=== PATIENT | female | born 1960 | race Caucasian/White ===

== ENCOUNTER 2017-09-26 10:04 | Day surgery (SDC) | payer OTHER, SELFPAY ==
[2017-09-26] VITALS (7 sets, daily range): BP systolic 110–143; BP diastolic 71–91; PULSE 53–69; RESP 16; TEMP 35.9–36.9; O2SAT 98–100; BMI 30.8
--- NOTE | 2017-09-26 | MASS_PTH ---
PATIENT: SHANTI GANDHI LOC: [facility] [place] U[place][id number] AGE/SX: 57/F ROOM: RE09/26/[address]: Dr. Cruz Bain MD : 1960 BED: DIS: 09/26/2017 SPEC #: [id number] RECD: 09/26/17 08:49 STATUS: MAYNOR GALVAN #: [id number] AMELIA: 09/26/17 00:[address]: Cruz Bain DEPT: SURGICAL PATHOLOGY RECD BY: Miko Echavarria ENTERED: 09/29/17 08:49 SP TYPE: Mass OTHR DR: No Primary Care Phys Tissues: Back, NOS Procedures: Surgery Specimen Level III HEADER OPERATION: Excision soft tissue mass right upper back by scapula PRE-OP DIAGNOSIS: Painful soft tissue mass right upper back by scapula TISSUE SUBMITTED: Soft tissue mass right upper back by scapula MICROSCOPIC DIAGNOSIS Soft tissue mass right upper back by scapula, excision: Mature adipose tissue consistent with lipoma. SJ:lambert 10/01/17 MICROSCOPIC DESCRIPTION Slides are reviewed. GROSS DESCRIPTION Received in fixative is one container labeled with the patient's name and designated soft tissue mass right upper back. The specimen consists of a piece of malhotra-yellow adipose tissue measuring 6 x 4.5 x 2.5 cm. The external surface is inked. Sections reveal yellow adipose cut surfaces without areas of hemorrhage, necrosis or cystic degeneration. Spa Assistant Manager sections are submitted in three cassettes. Sections are submitted after infusion cycle. / ROBERT:lambert 09/29/17 TC:1 CPT: 28362
--- NOTE | 2017-09-26 00:23 | HP.PCM_ITS ---
History and Physical Date of Admission: 09/26/17 HISTORY OF PRESENT ILLNESS 57 year old woman presents with a painful soft tissue mass right upper back by scapula that has been increasing in size over the last several months. She denies any fever. She denies any trauma. She states there is some discomfort when it is bumped and when she is sitting in a chair and driving. She presents at this time for further evaluation and treatment. PAST MEDICAL HISTORY Hypertension. PAST SURGICAL HISTORY None. MEDICATIONS None. ALLERGIES acetaminophen [From Tylenol-Codeine #3]. codeine [From Tylenol-Codeine #3]. FAMILY HISTORY Mother - Arthritis. Diabetes. Heart disease. Hypertension. Father - Heart disease. SOCIAL HISTORY Smoking Status: Former smoker alcohol intake: current substance use type: does not use REVIEW OF SYSTEMS General - Denies fever, fatigue, and weight loss. Eyes - Denies cataracts and glaucoma. ENT - Denies nasal congestion and sore throat. Endocrine - Denies excessive thirst and urination. Skin - Denies skin cancer. Has painful soft tissue mass right upper back by scapula. Musculoskeletal - Denies joint pain, joint stiffness, weakness of muscles and joints, back pain, and arthritis. Neuro - Denies headaches. Cardiovascular - Denies chest pain, fatigue, and shortness of breath with exertion. Psych - Denies anxiety and depression. Respiratory - Denies chronic cough and shortness of breath. Gastrointestinal - Denies nausea, vomiting, diarrhea, and constipation. Hematologic - Denies abnormal bruising and bleeding. Genitourinary - Denies hematuria and urinary frequency. PHYSICAL EXAM General - Alert and Oriented HEENT - PERRL. EOMI. Throat is clear. No suspicious lesions noted. Neck - Supple and nontender. No cervical adenopathy. No suspicious lesions noted. Lungs - Clear to auscultation. Heart - Regular rate and rhythm. Abdomen - Soft and nondistended. Extremities - FROM. No axillary adenopathy. Radial pulses are palpable. No suspicious lesions noted. Neuro - CN II-XII grossly intact. Back - On the right upper back by scapula is a soft tissue mass. It measures 6 cm. It is mobile. It is not adherent to the underlying muscle. It is not adherent to the scapula. The overlying skin is not adherent to the soft tissue mass. No evidence of infection. No drainage. No ulceration. Slight discomfort when palpated. No sensory deficits. Psych - Normal mood and affect. ASSESSMENT 6 cm painful soft tissue mass right upper back by scapula. PLAN The soft tissue mass is clinically consistent with a lipoma. Because of its location, there is discomfort when it is bumped and also when she leans back in a chair or when she is driving. Recommend excision of this soft tissue mass and send it to Pathology for analysis to rule out carcinoma. Doubt the mass is submuscular. Depending on the extent of the dissection, a drain may be necessary postoperatively. Surgery will be done under local anesthesia and IV sedation on an outpatient basis. Patient was informed of the risks and complications of the procedure including alternatives to surgery. These were discussed with the patient personally. Patient voices understanding and wishes to proceed. Some of the risks and complications were included in a form from the [employer] [place] [employer].
[2017-09-26] MEDS: Cefazolin 2 GM in 0.9% Normal Saline 100 ML IV (12:12)
[2017-09-26] MEDS: Mupirocin Ointment 22gm Tube 1 APPLIC (13:08)
--- NOTE | 2017-09-26 13:12 | PCM.IMDPSTOP ---
Immediate Post-Op Note Date of Procedure: 09/26/17 Primary Surgeon/Physician: Cruz Bain specialist physicians: None Pre-Operative Diagnosis: 6 cm painful soft tissue mass right upper back by scapula. Post-Operative Diagnosis: 6 cm painful soft tissue mass right upper back by scapula with adherence to underlying muscles (latissimus dorsi, rhomboid, and trapezius). Surgery/Procedure Performed:: Excision 6 cm painful soft tissue mass right upper back by scapula with adherence to underlying muscles (latissimus dorsi, rhomboid, and trapezius). Description of Surgical Findings:: 57 year old woman presents with a painful soft tissue mass right upper back by scapula that has been increasing in size over the last several months. She denies any fever. She denies any trauma. She states there is some discomfort when it is bumped and when she is sitting in a chair and driving. Today the patient underwent excision 6 cm painful soft tissue mass right upper back by scapula with adherence to underlying muscles (latissimus dorsi, rhomboid, and trapezius). I used Lg absorbable hemostat. Reference Number - [id number]. Lot Number - [id number]. Expiration - May 21, 2022. Estimated Blood Loss: 25 ml. Specimen's removed: Painful soft tissue mass right upper back by scapula to Pathology. Drains: Remy. Type of Anesthesia:: Local MAC - Xylocaine with epinephrine. - Admit VTE Documentation VTE Present on Admission: No VTE Mechan Device Prophylaxis: SCD's VTE Pharm Prophylaxis ordered?: No
--- NOTE | 2017-09-26 13:15 | OP.PN_ITS ---
Immediate Post-Op Note Date of Procedure: 09/26/17 Primary Surgeon/Physician: Cruz Bain handle attacher: None Pre-Operative Diagnosis: 6 cm painful soft tissue mass right upper back by scapula. Post-Operative Diagnosis: 6 cm painful soft tissue mass right upper back by scapula with adherence to underlying muscles (latissimus dorsi, rhomboid, and trapezius). Surgery/Procedure Performed:: Excision 6 cm painful soft tissue mass right upper back by scapula with adherence to underlying muscles (latissimus dorsi, rhomboid, and trapezius). Description of Surgical Findings:: 57 year old woman presents with a painful soft tissue mass right upper back by scapula that has been increasing in size over the last several months. She denies any fever. She denies any trauma. She states there is some discomfort when it is bumped and when she is sitting in a chair and driving. Today the patient underwent excision 6 cm painful soft tissue mass right upper back by scapula with adherence to underlying muscles (latissimus dorsi, rhomboid , and trapezius). I used Lg absorbable hemostat. Reference Number - [id number]. Lot Number - [id number]. Expiration - May 21, 2022. Estimated Blood Loss: 25 ml. Specimen's removed: Painful soft tissue mass right upper back by scapula to Pathology. Drains: Remy. Type of Anesthesia:: Local MAC - Xylocaine with epinephrine. - Admit VTE Documentation VTE Present on Admission: No VTE Mechan Device Prophylaxis: SCD's VTE Pharm Prophylaxis ordered?: No
--- NOTE | 2017-09-26 13:18 | PCM.DC ---
You will use the following diet at home:: No restrictions Discharge Activity: May not drive while taking narcotic pain medications., May Not Shower - until the drain is removed., - - no heavy lifting. keep head elevated. May shower in (days): 7 - may shower after the drain is removed in the office. May resume sexual activity in: No Restrictions Weight Bearing Status: Weight bearing as tolerated Lifting Restrictions: 20 lbs. Keep extremity elevated above heart level: - - elevate head. Call your doctor if your incision/area has: Continuous Slow Oozing, Sudden Increased Bleeding, Increased Pain/ Swelling, Increased Redness, Foul Smelling Discharge, Swelling at the incision site Call your doctor if you observe: Fever of 101 or Higher, Coldness, Increased Pain, Shortness of breath, Chest pain, Calf discomfort, Uncontrolled pain Suture Line Care: - - after dressing removed in two days apply antibiotic ointment to suture line daily. Change Dressing in (Days):: 2 - daily gauze dressing. Cleanse incision/area with: - - may get incision wet in the shower after the drain is removed. Allergies/Adverse Reactions: Allergies acetaminophen [From Tylenol-Codeine #3] Adverse Reaction (Intermediate, Verified 09/19/17 14:15) Nausea codeine [From Tylenol-Codeine #3] Adverse Reaction (Intermediate, Verified 09/19/17 14:15) Nausea Medications to take at Discharge Cefadroxil [Duricef] 500 mg PO BID #20 cap 09/26/17 Diazepam [Valium] 5 mg PO 4X/DAY PRN PRN #20 tab 09/26/17 Oxycodone HCl/Acetaminophen [Percocet 5/325] 1 - 2 tab PO 4X/DAY PRN PRN 5 Days #40 tab 09/26/17 The following prescriptions were given: Diazepam [Valium] 5 mg PO 4X/DAY PRN PRN #20 tab PRN Reason: Spasms Oxycodone HCl/Acetaminophen [Percocet 5/325] 1 - 2 tab PO 4X/DAY PRN PRN 5 Days #40 tab PRN Reason: Pain Cefadroxil [Duricef] 500 mg PO BID #20 cap Primary Care Physician: Care Physician,No Primary [Primary Care Provider] - Test Results: Test results from this visit will be discussed in further detail at your follow-up appointment, if applicable. Please Follow Up With: Cruz Bain MD When: one week. call [phone] for appt. Proposed Discharge Date: 09/26/17
--- NOTE | 2017-09-26 13:23 | DCINST_ITS ---
You will use the following diet at home:: No restrictions Discharge Activity: May not drive while taking narcotic pain medications., May Not Shower - until the drain is removed., - - no heavy lifting. keep head elevated. May shower in (days): 7 - may shower after the drain is removed in the office. May resume sexual activity in: No Restrictions Weight Bearing Status: Weight bearing as tolerated Lifting Restrictions: 20 lbs. Keep extremity elevated above heart level: - - elevate head. Call your doctor if your incision/area has: Continuous Slow Oozing, Sudden Increased Bleeding, Increased Pain/ Swelling, Increased Redness, Foul Smelling Discharge, Swelling at the incision site Call your doctor if you observe: Fever of 101 or Higher, Coldness, Increased Pain, Shortness of breath, Chest pain, Calf discomfort, Uncontrolled pain Suture Line Care: - - after dressing removed in two days apply antibiotic ointment to suture line daily. Change Dressing in (Days):: 2 - daily gauze dressing. Cleanse incision/area with: - - may get incision wet in the shower after the drain is removed. Allergies/Adverse Reactions: Allergies acetaminophen [From Tylenol-Codeine #3] Adverse Reaction (Intermediate, Verified 09/19/17 14:15) Nausea codeine [From Tylenol-Codeine #3] Adverse Reaction (Intermediate, Verified 09/19 14:15) Nausea Medications to take at Discharge Cefadroxil [Duricef] 500 mg PO BID #20 cap 09/26/17 Diazepam [Valium] 5 mg PO 4X/DAY PRN PRN #20 tab 09/26/17 Oxycodone HCl/Acetaminophen [Percocet 5/325] 1 - 2 tab PO 4X/DAY PRN PRN 5 Days #40 tab 09/26/17 The following prescriptions were given: Diazepam [Valium] 5 mg PO 4X/DAY PRN PRN #20 tab PRN Reason: Spasms Oxycodone HCl/Acetaminophen [Percocet 5/325] 1 - 2 tab PO 4X/DAY PRN PRN 5 Days #40 tab PRN Reason: Pain Cefadroxil [Duricef] 500 mg PO BID #20 cap Primary Care Physician: Care Physician,No Primary [Primary Care Provider] - Test Results: Test results from this visit will be discussed in further detail at your follow- up appointment, if applicable. Please Follow Up With: Cruz Bain MD When: one week. call [phone] for appt. Proposed Discharge Date: 09/26/17
--- NOTE | 2017-09-26 18:05 | PCM.OPRPT ---
Report of Operation Date of Procedure: 09/26/17 Pre-Operative Diagnosis: 6 cm painful soft tissue mass right upper back by scapula. Post-Operative Diagnosis: 6 cm painful soft tissue mass right upper back by scapula with adherence to underlying muscles (latissimus dorsi, rhomboid, and trapezius). Surgery/Procedure Performed:: Excision 6 cm painful soft tissue mass right upper back by scapula with adherence to underlying muscles (latissimus dorsi, rhomboid, and trapezius). Description of Surgical Findings:: 57 year old woman presents with a painful soft tissue mass right upper back by scapula that has been increasing in size over the last several months. She denies any fever. She denies any trauma. She states there is some discomfort when it is bumped and when she is sitting in a chair and driving. Patient was informed of the risks and complications of the procedure including alternatives to surgery. These were discussed with the patient personally. Patient voices understanding and wishes to proceed. Some of the risks and complications were included in a form from the [place] [employer]. I used Lg absorbable hemostat. Reference Number - [id number]. Lot Number - [id number]. Expiration - May 21, 2022. chemistry manager: None Type of Anesthesia:: Local MAC - Xylocaine with epinephrine. Specimen's removed: Painful soft tissue mass right upper back by scapula to Pathology. Drains: Remy. Estimated Blood Loss (mL): 25 ml. Description of Procedure: Patient was taken to OR in supine position and was given IV sedation. She was then placed in an oblique position for better exposure of her right upper back. Her right upper back was prepped and draped in the usual fashion. SCD's were placed for DVT prophylaxis. Perioperative antibiotics were given intravenously. Using xylocaine with epinephrine, The soft tissue mass right upper back by scapula was infiltrated. After waiting 5 minutes for the anesthetic to take effect, an oblique incision was made over the mass and dissection was carried down into the subcutaneous tissue. A fair amount of scar tissue was present around this soft tissue mass which was clinically consistent with a lipoma. There was adherence of the soft tissue mass down to the underlying muscles which helps to explain her painful symptomatology. The muscles involved were the latissimus dorsi, rhomboid, and trapezius. The mass was multilobular and a little larger after removal than could be ascertained preoperatively. The soft tissue mass was then sent to Pathology for analysis to rule out carcinoma. The size of the soft tissue mass was 6 cm. Hemostasis was obtained with electrocautery. The wound was irrigated with saline. The cavity after the excision was large, and I felt a drain was necessary to minimize seroma formation. Using a size 15 Remy drain, I made a separate stab incision inferiorly and secured the drain to the skin with 3-0 Nylon suture. Also I sprayed Lg absorbable hemostat into the wound to minimize seroma as well. I then closed the wound in multiple layers with 3-0 Vicryl figure of eight interrupted sutures for the underlying fascia. The deep dermis and subcutaneous tissue was approximated with 4-0 Monocryl interrupted sutures. The skin was approximated with 4-0 Prolene interrupted sutures. Antibiotic ointment was applied to the incision followed by a compression gauze dressing. Patient tolerated the procedure well and was sent to PACU in satisfactory condition. She will be sent home on antibiotics and pain medication. She will followup in the office in a week for a wound check and for discussion of the pathology report and for removal of the drain. The sutures will be removed in 7-10 days. Grafts/Implants Used: None. - Complications None. - Admit VTE Documentation VTE Present on Admission: No VTE Mechan Device Prophylaxis: SCD's VTE Pharm Prophylaxis ordered?: No Code Visit Surgery Charges CPT - 59279 ICD-10 - R22.2, D17.1
--- NOTE | 2017-09-27 15:05 | OP.PCM_ITS ---
Report of Operation Date of Procedure: 09/26/17 Pre-Operative Diagnosis: 6 cm painful soft tissue mass right upper back by scapula. Post-Operative Diagnosis: 6 cm painful soft tissue mass right upper back by scapula with adherence to underlying muscles (latissimus dorsi, rhomboid, and trapezius). Surgery/Procedure Performed:: Excision 6 cm painful soft tissue mass right upper back by scapula with adherence to underlying muscles (latissimus dorsi, rhomboid, and trapezius). Description of Surgical Findings:: 57 year old woman presents with a painful soft tissue mass right upper back by scapula that has been increasing in size over the last several months. She denies any fever. She denies any trauma. She states there is some discomfort when it is bumped and when she is sitting in a chair and driving. Patient was informed of the risks and complications of the procedure including alternatives to surgery. These were discussed with the patient personally. Patient voices understanding and wishes to proceed. Some of the risks and complications were included in a form from the [place] [employer]. I used Lg absorbable hemostat. Reference Number - [id number]. Lot Number - [id number]. Expiration - May 21, 2022. car rider: None Type of Anesthesia:: Local MAC - Xylocaine with epinephrine. Specimen's removed: Painful soft tissue mass right upper back by scapula to Pathology. Drains: Remy. Estimated Blood Loss (mL): 25 ml. Description of Procedure: Patient was taken to OR in supine position and was given IV sedation. She was then placed in an oblique position for better exposure of her right upper back. Her right upper back was prepped and draped in the usual fashion. SCD's were placed for DVT prophylaxis. Perioperative antibiotics were given intravenously. Using xylocaine with epinephrine, The soft tissue mass right upper back by scapula was infiltrated. After waiting 5 minutes for the anesthetic to take effect, an oblique incision was made over the mass and dissection was carried down into the subcutaneous tissue. A fair amount of scar tissue was present around this soft tissue mass which was clinically consistent with a lipoma. There was adherence of the soft tissue mass down to the underlying muscles which helps to explain her painful symptomatology. The muscles involved were the latissimus dorsi, rhomboid, and trapezius. The mass was multilobular and a little larger after removal than could be ascertained preoperatively. The soft tissue mass was then sent to Pathology for analysis to rule out carcinoma. The size of the soft tissue mass was 6 cm. Hemostasis was obtained with electrocautery. The wound was irrigated with saline. The cavity after the excision was large, and I felt a drain was necessary to minimize seroma formation. Using a size 15 Remy drain, I made a separate stab incision inferiorly and secured the drain to the skin with 3-0 Nylon suture. Also I sprayed Lg absorbable hemostat into the wound to minimize seroma as well. I then closed the wound in multiple layers with 3-0 Vicryl figure of eight interrupted sutures for the underlying fascia. The deep dermis and subcutaneous tissue was approximated with 4-0 Monocryl interrupted sutures. The skin was approximated with 4-0 Prolene interrupted sutures. Antibiotic ointment was applied to the incision followed by a compression gauze dressing. Patient tolerated the procedure well and was sent to PACU in satisfactory condition. She will be sent home on antibiotics and pain medication. She will followup in the office in a week for a wound check and for discussion of the pathology report and for removal of the drain. The sutures will be removed in 7 -10 days. Grafts/Implants Used: None. - Complications None. - Admit VTE Documentation VTE Present on Admission: No VTE Mechan Device Prophylaxis: SCD's VTE Pharm Prophylaxis ordered?: No Code Visit Surgery Charges CPT - 28143 ICD-10 - R22.2, D17.1
== END 2017-09-26 14:24 | disposition home or self-care (01) ==
LOC: SDC 10:04 → AC 10:06
PROVIDERS: Visit Provider Surgery
PROC: (CPT 21933; principal; 2017-09-26 11:30)
DX: R22.2 Localized swelling, mass and lump, trunk (principal); I10 Essential (primary) hypertension; Z78.0 Asymptomatic menopausal state; Z87.891 Personal history of nicotine dependence
CPT/HCPCS: 00300; 21933; 88304; 88305; J7120

== ENCOUNTER → 2019-08-05 | Outpatient (CLI) | payer OTHER, SELFPAY ==
[2017-09-26 10:28] VITALS: BMI 30.8
== END | disposition home or self-care (01) ==
PROVIDERS: Referring Provider Nurse Practitioner Adult Health; Visit Provider Nurse Practitioner Adult Health
DX: R82.998 Other abnormal findings in urine (principal)
CPT/HCPCS: 87086; 87088

== ENCOUNTER 2019-08-06 08:41 | Day surgery (SDC) | payer OTHER, SELFPAY ==
[2017-09-26 10:28] VITALS: BMI 30.8
[2019-08-06] VITALS (7 sets, daily range): BP systolic 150–167; BP diastolic 81–93; PULSE 60–74; RESP 16; TEMP 36.3–37.3; O2SAT 96–98; BMI 35.0
--- NOTE | 2019-08-06 09:08 | RAD_ITS ---
STUDY: X-RAY - ABDOMEN/PELVIS REASON FOR EXAM: Female, 59 years old. PRE OP KIDNEY STONE TECHNIQUE: Single AP view of the abdomen / pelvis. COMPARISON: None. FINDINGS: Normal visualized lung bases. There is an abundance of fecal material throughout the colon. There is a 5.6 mm calculus in the region of the left renal pelvis. Normal soft tissue structures. Normal visualized osseous structures. RAD/Abdomen Single View IMPRESSION: 5.6 mm calculus in the region of the left renal pelvis. Large amount of fecal material is seen in the colon. Electronically Signed: Jorge Rowe, at 10:19 EDT , Service support ,
[2019-08-06] MEDS: Lactated Ringers 1,000 ML 100 ML IV ×2 (10:26→12:28)
[2019-08-06] MEDS: Cefazolin 2 GM in 0.9% Normal Saline 100 ML IV (10:38)
--- NOTE | 2019-08-06 10:42 | PCM.HP.STD ---
History of Present Illness Date of Admission: 08/06/19 Chief Complaint: Left proximal ureteral calculi The patient is a 59 year old female who is yesterday in the office with pain and blood in the urine KUB was done and she has a stone in the proximal left ureter CAT scan confirmed a stone up in the kidney stones moving given her pain or discomfort plan for treatment today with shockwave lithotripsy possible placement of stent if necessary. Past Medical History Past Medical History (Chronic Problems): Chronic Problems (Last Reviewed 08/21/17 @ 10:41 by Nya Omalley) Lipoma of back (Chronic) 6 cm painful lipoma right upper back by scapula with adherence to underlying muscles (latissimus dorsi, rhomboid, and trapezius) Hypertension (Chronic) Localized swelling, mass and lump, trunk (Chronic) 6 cm painful soft tissue mass right upper back by scapula Allergies acetaminophen [From Tylenol-Codeine #3] Adverse Reaction (Intermediate, Verified 08/06/19 09:11) Nausea codeine [From Tylenol-Codeine #3] Adverse Reaction (Intermediate, Verified 08/06/19 09:11) Nausea Home Medications: Ambulatory Orders Medication Instructions Recorded Ketorolac [Toradol] 10 mg PO Q6H PRN 08/05/19 Ondansetron HCl [Zofran] 4 mg PO PRN PRN 08/05/19 Surgical History: no surgical history Smoking Status: Former smoker Tobacco Use: Non-smoker Review of Systems Constitutional: Denies: Chills, Fever, Weight Change HEENT: Denies: Head Aches, Sinus Congestion, Sinus Drainage Cardiovascular: Denies: Chest Pain, Palpitations Respiratory: Denies: Cough, Shortness of breath at rest, Sputum production Gastrointestinal: Denies: Abdominal Pain, Nausea, Vomiting Genitourinary: Denies: Dysuria Musculoskeletal: Denies: Joint Pain, Joint Tenderness Skin: Denies: Rash, Wounds Neurological: Denies: Numbness, Tingling, Focal weakness Psychiatric: Denies: Anxiety, Depression, Homicidal Ideations, Suicidal Ideations Hematologic/ Lymphatic: Denies: Easy Bruising, Easy Bleeding VTE Information - Inpt Only VTE Present on Admission: No VTE Mechan Device Prophylaxis: SCD's - Physical Exam Vitals/I&O's: Vital Signs Temp Pulse Resp BP Pulse Ox 99.2 F H 73 16 150/93 H 96 08/06/19 09:17 08/06/19 09:17 08/06/19 09:17 08/06/19 09:17 08/06/19 09:17 Oxygen Delivery Method Room Air Weight: 87 kg Body Mass Index (BMI) 35.0 General: Alert, Oriented x3, Cooperative HEENT: Atraumatic, PERRLA, EOMI, Normocephalic Neck: Supple, No JVD, Negative Carotid Bruits Lungs: Clear to auscultation, Normal air movement Cardiovascular: Regular rate, No murmurs Abdomen: Bowel Sounds Present, Soft, Non Tender Extremities: No edema, Capillary Refill Less than 3 Seconds Skin: No rashes, No breakdown Musculoskeletal: No Tenderness to Palpation of Joints or Extremities Neurological: Cranial nerves II-XII grossly intact Psych/Mental Status: Normal Affect, Appropriate Microbiology Past 72 Hours 08/05/19 16:30 Mucosa - Nasopharyngeal Coronavirus COVID-19 PCR - Final Laboratory Results 08/05/19 16:30: COVID-19 (NISAHNT) Cancelled Current Medications Lactated Ringer's () 1,000 mls @ 100 mls/hr IV .Q10H YVES Last Admin: 08/06/19 10:26 Dose: 100 mls/hr Documented by: Assessment/Plan Plan to proceed with a left shockwave lithotripsy of stone possible stent placement if necessary. Talk to the patient regarding the procedure house done risk and benefits and expected outcomes. Essential Procedure Criteria Procedure Essential: Yes Criteria Note: On 06/08/2019 the [place] [facility] ([facility]) Public Order signed by [facility] Director Keya Aquino M.D., regarding the Management of Non-Essential Surgeries and Procedures for the purpose of preserving Personal Protective Equipment (PPE) and critical hospital capacity and resources within [place] went into effect as of 06/09/2019 at 5:00PM. According to the [facility] Public Order: This action will remain in full force and effect until the State of Emergency declared by the Governor no longer exists or the Director of the [facility] rescinds or modifies this Order.. This [facility] order stated all non-essential or elective surgeries and procedures that utilize PPE should be delayed unless there is undue risk to the current or future health of a patient. After reviewing the aforementioned [facility] Public Order and the patients clinical case, I have determined that the scheduled procedure meets the criteria to go forward. Risk to Patient if Procedure Delayed: Risk of rapidly worsening to severe symptoms if delayed
--- NOTE | 2019-08-06 10:44 | DCINST_ITS ---
Discharge Diet: No Restrictions, Light diet - advance as tolerated Discharge Activity: Return to Normal Activity, May Not Drive - for 2 days. Additional Activity Instructions:: Please be aware that pain medications may cause nausea. You should typically eat light foods as you take your pain medication. Pain medication may cause constipation, if this is a problem for you, please discuss with your doctor. Allergies/Adverse Reactions: Allergies acetaminophen [From Tylenol-Codeine #3] Adverse Reaction (Intermediate, Verified 08/06/19 09:11) Nausea codeine [From Tylenol-Codeine #3] Adverse Reaction (Intermediate, Verified 08/06/19 09:11) Nausea Medications to take at Discharge Ketorolac [Toradol] 10 mg PO Q6H PRN 08/05/19 Ondansetron HCl [Zofran] 4 mg PO PRN PRN 08/05/19 Primary Care Physician: Care Physician,No Primary [Primary Care Provider] - Test Results: Test results from this visit will be discussed in further detail at your follow- up appointment, if applicable. Please Follow Up With: Hunter Guallpa MD When: please call to make an appointment- NEXT WEEK WITH DILLAN
--- NOTE | 2019-08-06 11:34 | OP.PCM_ITS ---
Report of Operation Date of Procedure: 08/06/19 Pre-Operative Diagnosis: Left proximal ureteral calculi Post-Operative Diagnosis: Same Surgery/Procedure Performed:: Left extracorporeal shockwave lithotripsy Description of Surgical Findings:: 59-year-old female with a stone in the proximal ureter causing pain and obstruction and bleeding today working to proceed with shockwave lithotripsy of the stone we could see the stone clearly on KUB before surgery. Patient was taken back to the operating room at the smooth induction of anesthesia she was placed supine on the table in the lithotripter table we then proceeded with shockwave lithotripsy. The stone was placed in the F2 focal point of the shockwave machine a total of 3000 shockwaves were delivered to the stone at a rate of 90 shocks per minute, power from 5 to 7 kV, during the fra gmentation we monitor the stone with fluoroscopy to make sure that we kept the stone in the focal point of the shockwave treatment machine at the end of the treatment cycle the under fluoroscopy we could not see the stone fragments anymore it appeared to break up completely therefore at that point we decided not to place a stent. Patient anesthetic is being reversed plan to see her next week with a KUB for follow-up. Type of Anesthesia:: General Drains: none - Admit VTE Documentation VTE Present on Admission: No VTE Mechan Device Prophylaxis: SCD's
== END 2019-08-06 13:36 | disposition home or self-care (01) ==
LOC: SDC 08:43 → AC 08:44
PROVIDERS: Referring Provider Urology; Visit Provider Urology
PROC: (CPT 50590; principal; 2019-08-06 10:05)
DX: N20.1 Calculus of ureter (principal); I10 Essential (primary) hypertension; Z87.891 Personal history of nicotine dependence; Z11.59 Encounter for screening for other viral diseases
CPT/HCPCS: 00873; 50590; 74018; 87635; G2023; J7120; J2405; U0002

== ENCOUNTER 2019-08-12 11:40 | Inpatient (IN) | payer OTHER, SELFPAY ==
[2019-08-06 09:17] VITALS: BMI 35.0
--- NOTE | 2019-08-12 09:50 | RAD_ITS ---
STUDY: X-RAY - ABDOMEN/PELVIS REASON FOR EXAM: Female, 59 years old. Flank pain TECHNIQUE: AP supine and upright views of the abdomen and pelvis. COMPARISON: 08/06/2019 FINDINGS: Normal visualized lung bases. There is an abundance of fecal material throughout the colon. There is no demonstrated free abdominal air. The visualized liver, spleen and kidneys are grossly normal in size and morphology. No demonstrates calcifications overlying either renal shadow. There are however punctate calcifications in the left pelvis new since the previous study and likely represent fragments from recent lithotripsy. Normal soft tissue structures. Normal visualized osseous structures. RAD/Abdomen Single View IMPRESSION: New clustered punctate calcifications in the left pelvis likely sequela from recent lithotripsy. Large amount of retained stool throughout the colon Electronically Signed: Curry Bazan MD at 11:46 EDT , Service support ,
[2019-08-12 10:52] VITALS: BMI 34.0; BMI 34.1
[2019-08-12 11:04] VITALS: BP 153/86; PULSE 71; RESP 18; TEMP 36.9; O2SAT 95
--- NOTE | 2019-08-12 11:36 | PCM.HP.STD ---
History of Present Illness Date of Admission: 08/12/19 Chief Complaint: Eren straw stone fragments, and dehydration nausea vomiting The patient is a 59 year old female who had a 7 mm stone in the kidney she underwent shockwave lithotripsy last week stone broke up really well on x-ray and a fluoroscopy she was sent home then presented emergency room this past weekend with nausea vomiting not been able to pass stones, to pass one fragment but then presented the office today and she still having nausea vomiting looks pale week is not been able to keep liquids down has not been able passive fragments on KUB she has several fragments in the ureter will admit to the hospital for rehydration, plan to take her surgery for extraction of the stones and stent placement of the left side tomorrow morning. Past Medical History Past Medical History (Chronic Problems): Chronic Problems (Last Reviewed 08/21/17 @ 10:41 by Nya Omalley) Lipoma of back (Chronic) 6 cm painful lipoma right upper back by scapula with adherence to underlying muscles (latissimus dorsi, rhomboid, and trapezius) Hypertension (Chronic) Localized swelling, mass and lump, trunk (Chronic) 6 cm painful soft tissue mass right upper back by scapula Allergies acetaminophen [From Tylenol-Codeine #3] Adverse Reaction (Intermediate, Verified 08/12/19 11:22) Nausea, vomit codeine [From Tylenol-Codeine #3] Adverse Reaction (Intermediate, Verified 08/12/19 11:22) Nausea, vomit Home Medications: Ambulatory Orders Medication Instructions Recorded Ketorolac [Toradol] 10 mg PO Q6H PRN 08/05/19 Ondansetron HCl [Zofran] 4 mg PO Q6H PRN PRN 08/05/19 Oxycodone HCl/Acetaminophen 1 ea PO Q4H PRN 08/12/19 [Oxycodone-Acetaminophen 5-325] Surgical History: no surgical history Smoking Status: Former smoker Tobacco Use: Cigarettes Review of Systems Constitutional: Reports: Weakness. Denies: Chills, Fever, Weight Change HEENT: Denies: Head Aches, Sinus Congestion, Sinus Drainage Cardiovascular: Denies: Chest Pain, Palpitations Respiratory: Denies: Cough, Shortness of breath at rest, Sputum production Gastrointestinal: Reports: Abdominal Pain, Vomiting. Denies: Nausea Genitourinary: Denies: Dysuria Musculoskeletal: Denies: Joint Pain, Joint Tenderness Skin: Denies: Rash, Wounds Neurological: Denies: Numbness, Tingling, Focal weakness Psychiatric: Denies: Anxiety, Depression, Homicidal Ideations, Suicidal Ideations Hematologic/ Lymphatic: Denies: Easy Bruising, Easy Bleeding VTE Information - Inpt Only VTE Present on Admission: No VTE Mechan Device Prophylaxis: SCD's - Physical Exam Vitals/I&O's: Vital Signs Temp Pulse Resp BP Pulse Ox 98.4 F 71 18 153/86 H 95 08/12/19 11:04 08/12/19 11:04 08/12/19 11:04 08/12/19 11:04 08/12/19 11:04 Oxygen Delivery Method Room Air Weight: 85.865 kg Body Mass Index (BMI) 34.0 General: Alert, Oriented x3, Cooperative HEENT: Atraumatic, PERRLA, EOMI, Normocephalic Neck: Supple, No JVD, Negative Carotid Bruits Lungs: Clear to auscultation, Normal air movement Cardiovascular: Regular rate, No murmurs Abdomen: Bowel Sounds Present, Soft, Non Tender Extremities: No edema, Capillary Refill Less than 3 Seconds Skin: No rashes, No breakdown Musculoskeletal: No Tenderness to Palpation of Joints or Extremities Neurological: Cranial nerves II-XII grossly intact Psych/Mental Status: Normal Affect, Appropriate Current Medications Sodium Chloride () 10 - 40 ml IV UD PRN PRN Reason: SALINE FLUSH Assessment/Plan admit for nausea vomiting failure to pass stones after shockwave lithotripsy plan to take her tomorrow to remove the fragments are stuck in the distal ureter and place a stent in the left side.clear liquids for now and peel at midnight
[2019-08-12] MEDS: Lactated Ringers 1,000 ML 125 ML IV ×2 (12:05→22:26)
[2019-08-12] MEDS: 0.9% Saline Lock 10 ML Syringe IV ×4 (12:05→22:27)
[2019-08-12] MEDS: Morphine 2 MG/ML Syringe IV ×3 (12:08→18:56)
[2019-08-12] MEDS: Ondansetron 4 MG/2 ML Vial IV ×2 (12:14→22:27)
[2019-08-12 12:26] LABS: Anion Gap 5 (5-15); BUN 13 mg/dL (7-18); BUN/Creat Ratio 11.8 RATIO (10-20); Calcium,Total 9.3 mg/dL (8.5-10.1); Chloride 107 mmol/L (98-107); EST Glomerular Filtration Rate 54 mL/min (>60); Est Glom Filt Rate - Afr Amer 65 mL/min (>60); Estimated Creatinine Clearance 43.02 ml/min; Glucose 100 mg/dL (74-106); Potassium 3.9 mmol/L (3.5-5.1); Sodium Level 139 mmol/L (136-145)
[2019-08-12 12:27] LABS: Absolute Lymphocyte Count 1.36 X10^3/uL (0.83-4.51); Absolute Neutrophil Count 7.5 X10^3/uL (2.0-7.7); Basophil# 0.04 X10^3/uL; Basophil% 0.4 % (0-1); Eosinophil# 0.11 X10^3/uL; Eosinophils% 1.1 % (0-5); Lymphocyte # 1.36 X10^3/ul (4.0); Lymphocyte % 13.8 % (19-41); Mean Corp Hgb Conc 33.3 g/dL (32-36); Mean Corpuscular Hgb 31.3 pg (27.0-32.0); Mean Platelet Vol. 10.5 fl (6.2-12.0); Monocyte% 8.1 % (0-10); NRBC Flagged by Analyzer 0 % (0-5); Neutrophil # 7.54 X10^3/uL (2.7-7.7); Neutrophil % 76.2 % (47-70); Platelet Count 282 K/mm3 (150-450); RBC Distribution Width CV 13.2 % (11.6-14.6); RBC Distribution Width SD 45.5 fl (35.1-43.9); Red Blood Count 4.47 M/mm3 (4.2-5.4); White Blood Count 9.9 K/mm3 (4.4-11.0)
[2019-08-12] MEDS: Ciprofloxacin 400 MG/200 ML BAG 200 MG IV ×2 (13:13→22:15)
[2019-08-12 15:53] VITALS: BP 154/84; PULSE 77; RESP 18; TEMP 36.7; O2SAT 98
[2019-08-12] MEDS: oxyCODONE 5 MG Tablet PO ×2 (17:52→22:27)
[2019-08-12 22:10] VITALS: BP 141/75; PULSE 87; RESP 16; TEMP 36.5; O2SAT 95
[2019-08-12] MEDS: Acetaminophen 325 MG Tablet 650 MG PO (22:27)
[2019-08-12] MEDS: Docusate Sodium 100 MG Capsule PO (22:27)
[2019-08-13] VITALS (11 sets, daily range): BP systolic 119–158; BP diastolic 69–80; PULSE 68–86; RESP 16–18; TEMP 36.5–37.2; O2SAT 92–99; BMI 34.0
[2019-08-13] MEDS: 0.9% Saline Lock 10 ML Syringe IV ×4 (05:08→09:52)
[2019-08-13] MEDS: Ondansetron 4 MG/2 ML Vial IV (05:08)
[2019-08-13] MEDS: Morphine 2 MG/ML Syringe IV ×2 (05:14→09:52)
[2019-08-13] MEDS: proCHLORPERazine 10 MG/2 ML Vial IV (07:23)
[2019-08-13] MEDS: Lactated Ringers 1,000 ML 125 ML IV ×2 (09:02→14:02)
[2019-08-13] MEDS: Ciprofloxacin 400 MG/200 ML BAG 200 MG IV ×2 (09:02→21:51)
--- NOTE | 2019-08-13 12:12 | PCM.PROGNOTE ---
Subjective: Patient admitted for multiple fragments in the distal left ureter that failed the past after shockwave lithotripsy she has been in significant pain today we plan to proceed with ureteroscopy basket extraction and will stent. - Physical Exam Vitals/I&O's: Vital Signs Temp Pulse Resp BP Pulse Ox 98.1 F 69 18 157/69 H 97 08/13/19 11:13 08/13/19 11:13 08/13/19 11:13 08/13/19 11:13 08/13/19 11:13 Oxygen Delivery Method Room Air Weight: 85.86 kg Body Mass Index (BMI) 34.0 Intake and Output for Last 24 Hours 08/11/19 08/12/19 08/13/19 23:59 23:59 23:59 Intake Total 2058.33 / 2408.33 1541.67 / 1541.67 Output Total 600 / 1300 1400 / 1400 Balance 1458.33 / 1108.33 141.67 / 141.67 General: Alert, Oriented x3, Cooperative HEENT: Atraumatic, PERRLA, EOMI, Normocephalic Neck: Supple, No JVD, Negative Carotid Bruits Lungs: Clear to auscultation, Normal air movement Cardiovascular: Regular rate, No murmurs Abdomen: Bowel Sounds Present, Soft, Non Tender Extremities: No edema, Capillary Refill Less than 3 Seconds Skin: No rashes, No breakdown Musculoskeletal: No Tenderness to Palpation of Joints or Extremities Neurological: Cranial nerves II-XII grossly intact Psych/Mental Status: Normal Affect, Appropriate Microbiology Past 72 Hours 08/12/19 13:20 Mucosa - Nasopharyngeal Coronavirus COVID-19 PCR - Final Laboratory Results 08/12/19 12:03: WBC 9.9, RBC 4.47, Hgb 14.0, Hct 42.0, MCV 94.0, MCH 31.3, MCHC 33.3, RDW Std Deviation 45.5 H, RDW Coeff of Rebecca 13.2, Plt Count 282, MPV 10.5, Immature Gran % (Auto) 0.400, Neut % (Auto) 76.2 H, Lymph % (Auto) 13.8 L, [place] % (Auto) 8.1, Eos % (Auto) 1.1, Baso % (Auto) 0.4, Absolute Neuts (auto) 7.5, Absolute Lymphs (auto) 1.36, Nucleated RBC % 0 08/12/19 12:03: Sodium 139, Potassium 3.9, Chloride 107, Carbon Dioxide 27.0, Anion Gap 5, BUN 13, Creatinine 1.10 H, Estim Creat Clear Calc 43.02, Est GFR (MDRD) Af Amer 65, Est GFR (MDRD) Non-Af 54 L, BUN/Creatinine Ratio 11.8, Glucose 100, Calcium 9.3 Current Medications Acetaminophen (Tylenol) 650 mg PO Q6H PRN PRN PRN Reason: Pain Score 1-10/Temp > 100.7 F Last Admin: 08/12/19 22:27 Dose: 650 mg Documented by: Dextrose (D50w Syringe) 0 gm IV X1 PRN; Protocol PRN Reason: Hypoglycemia Docusate Sodium (Colace) 100 mg PO BID PRN PRN PRN Reason: Constipation Last Admin: 08/12/19 22:27 Dose: 100 mg Documented by: Glucagon () 1 mg IM .X1 PRN PRN Reason: Hypoglycemia Lactated Ringer's () 1,000 mls @ 125 mls/hr IV .Q8H YVES Last Admin: 08/13/19 09:02 Dose: 125 mls/hr Documented by: Ciprofloxacin (Cipro) 400 mg in 200 mls @ 200 mls/hr IV Q12 [facility] Stop: 08/19/19 12:01 Last Infusion: 08/13/19 10:02 Dose: Infused Documented by: Morphine Sulfate () 2 mg IV Q3H PRN PRN PRN Reason: Pain Score 6-10/10 Last Admin: 08/13/19 09:52 Dose: 2 mg Documented by: Ondansetron HCl (Zofran) 4 mg IV Q6H PRN PRN PRN Reason: NAUSEA/VOMITING Last Admin: 08/13/19 05:08 Dose: 4 mg Documented by: Oxycodone HCl (Oxyir) 5 mg PO Q4H PRN PRN PRN Reason: Pain Score 4-5/10 Last Admin: 08/12/19 22:27 Dose: 5 mg Documented by: Sodium Chloride () 10 - 40 ml IV UD PRN PRN Reason: SALINE FLUSH Last Admin: 08/13/19 09:52 Dose: 10 ml Documented by: Medical Necessity - Tobacco Use Smoking Status: Former smoker Tobacco Use: Cigarettes Assessment/Plan Plan to proceed with left ureteroscopy basket extraction of stone fragments and left stent placement.
--- NOTE | 2019-08-13 12:17 | DCINST_ITS ---
Discharge Diet: Light diet - advance as tolerated Discharge Activity: Return to Normal Activity Call your doctor if you observe: Fever of 101 or Higher, Uncontrolled pain Allergies/Adverse Reactions: Allergies acetaminophen [From Tylenol-Codeine #3] Adverse Reaction (Intermediate, Verified 08/12/19 11:22) Nausea, vomit codeine [From Tylenol-Codeine #3] Adverse Reaction (Intermediate, Verified 08/12/19 11:22) Nausea, vomit Medications to take at Discharge Ketorolac [Toradol] 10 mg PO Q6H PRN 08/05/19 Ondansetron HCl [Zofran] 4 mg PO Q6H PRN PRN 08/05/19 Oxycodone HCl/Acetaminophen [Oxycodone-Acetaminophen 5-325] 1 ea PO Q4H PRN 08/12/19 Ciprofloxacin [Cipro] 500 mg PO BID #6 tab 08/13/19 Oxycodone HCl/Acetaminophen [Percocet 5/325] 1 tab PO Q4H PRN PRN 5 Days #14 tab 08/13/19 The following prescriptions were given: Ciprofloxacin [Cipro] 500 mg PO BID #6 tab Prescription Printed Oxycodone HCl/Acetaminophen [Percocet 5/325] 1 tab PO Q4H PRN PRN 5 Days #14 tab PRN Reason: Pain Prescription Printed Primary Care Physician: Care Physician,No Primary [Primary Care Provider] - Test Results: Test results from this visit will be discussed in further detail at your follow- up appointment, if applicable. Please Follow Up With: Hunter Guallpa MD When: please call to make an appointment.
--- NOTE | 2019-08-13 12:35 | CALC_PTH ---
PATIENT: SHANTI GANDHI LOC: [facility] U#:[id number] AGE/SX: 59/F ROOM: [id number] RE08/12/[address]: Dr. Hunter Guallpa MD : [id number] BED: 1 DIS: 08/14/2019 SPEC #: [id number] RECD: 08/13/19 13:11 STATUS: MAYNOR COCHRANEmily #: [id number] AMELIA: 08/13/19 12:[address]: Hunter Guallpa DEPT: SURGICAL PATHOLOGY RECD BY: Yeison Orozco ENTERED: 08/17/19 08:41 SP TYPE: Calculi OT DR: No Primary Care Phys Tissues: CALCULI Procedures: Surgery Specimen Level I HEADER OPERATION: Cysto, ureteroscopy PRE-OP DIAGNOSIS: Kidney calculus, ureteral calculus TISSUE SUBMITTED: Left ureteral calculi GROSS DIAGNOSIS Fragments of stone, clinically left ureteral calculi, submitted for stone analysis. SJ:lambert 08/17/19 COMMENT The calculus is submitted in its entirety for chemical stone analysis. The results from this study will be reported separately. GROSS DESCRIPTION Received is one container labeled with the patient's name and designated ureteral calculi left. The specimen consists of two fragments of brownish-black stone measuring 0.1 and 0.3 cm in greatest dimension. The calculi are submitted in entirety for chemical stone analysis. / ROBERT:lambert 08/17/19 CPT: 67143
--- NOTE | 2019-08-13 12:41 | OP.PCM_ITS ---
Report of Operation Date of Procedure: 08/13/19 Pre-Operative Diagnosis: Distal left ureteral fragments after shockwave li thotripsy severe renal colic Post-Operative Diagnosis: Same Surgery/Procedure Performed:: Cystoscopy, balloon dilation of the left ureter, ureteroscopy basket fragments and extraction, and left stent placement Description of Surgical Findings:: 59-year-old female had a stone in the left kidney she underwent shockwave lith otripsy stone broke up really well with shockwave lithotripsy. She initially did well but then presented back to the hospital in severe renal colic and x-ray was done and she had several fragments in the distal left ureter she is not been able to pass she did have nausea and vomiting was admitted for dehydration. Today we can proceed with left ureteroscopy and basket extraction of the fragments left stent placement. 59-year-old female taken back to the operating room at the smooth induction of general anesthesia she was placed supine on the table in the dorsolithotomy position the urethra vaginal area prepped and draped in usual sterile fashion went into the bladder with a 21 Palestinian rigid cystoscopy the ureteroscope advanced a wire up the left ureter and then I attempted to go next the wire with the ureteroscope but it was too tight so then I balloon dilated the distal left ureter with a 12 Palestinian 10 cm balloon dilator after this was accomplished then I was able to get in with the Stortz 5 Palestinian ureteroscope into the ureter quite easily there were 2 fragments within the ureter both of these fragments were extracted with a nitinol tipless basket. After the both fragments were extracted then I put a wire back up in the kidney and over the wire place a stent. The stent was position between the kidney bladder good position coils in both position left the string of the stent for easy extraction patient anesthetic was reversed bladder was drained and will see her next week for stent extraction with a string. Type of Anesthesia:: General Drains: stent left side - Admit VTE Documentation VTE Present on Admission: No
[2019-08-14] MEDS: Lactated Ringers 1,000 ML 125 ML IV (00:33)
[2019-08-14 02:25] VITALS: BP 130/73; PULSE 69; RESP 16; TEMP 36.7; O2SAT 97
[2019-08-14] MEDS: Ciprofloxacin 400 MG/200 ML BAG 200 MG IV (09:03)
[2019-08-14 09:05] VITALS: BP 147/81; PULSE 65; RESP 18; TEMP 36.8; O2SAT 97
--- NOTE | 2019-08-14 10:10 | PCM.DC.SUM ---
Discharge Date and Diagnosis Date of Admission: 08/12/19 Date of Discharge: 08/14/19 - Secondary Discharge Diagnosis Chronic Problems: Chronic Problems (Last Reviewed 08/21/17 @ 10:41 by Nya Omalley) Lipoma of back (Chronic) 6 cm painful lipoma right upper back by scapula with adherence to underlying muscles (latissimus dorsi, rhomboid, and trapezius) Hypertension (Chronic) Localized swelling, mass and lump, trunk (Chronic) 6 cm painful soft tissue mass right upper back by scapula Hospital Course and Treatment Operations: - - Cystoscopy basket extraction of stones and stent placement. Procedures: None Summary of Care Provided: The patient is a 59 year old female who underwent shockwave lithotripsy for stone in the left kidney she passed a fragment of the week but ended up in the emergency room with severe pain she did had more severe pain for several days was trying to stay at home but started having nausea vomiting became dehydrated saw me in the office we are direct admission from the office to the hospital for rehydration, overnight try to see if she could pass a stones more but she failed so we took her to surgery and performed ureteroscopy extraction of stone fragments and stent placement after the stent placement and removal of stone fragments she is feeling much better she is now discharged home today with a stent in place and we can see her next week to remove the stent. She was given prescription for antibiotics and pain medicine - Physical Exam Vitals/I&O's: Vital Signs Temp Pulse Resp BP Pulse Ox 98.3 F 65 18 147/81 H 97 08/14/19 09:05 08/14/19 09:05 08/14/19 09:05 08/14/19 09:05 08/14/19 09:05 Oxygen Delivery Method Room Air Weight: 85.86 kg Body Mass Index (BMI) 34.0 Intake and Output for Last 24 Hours 08/12/19 08/13/19 08/14/19 23:59 23:59 23:59 Intake Total 2058.33 / 2408.33 4252.09 / 4252.09 200 / 200 Output Total 600 / 1300 2650 / 2650 1400 / 1400 Balance 1458.33 / 1108.33 1602.09 / 1602.09 -1200 / -1200 General: Alert, Oriented x3, Cooperative HEENT: Atraumatic, PERRLA, EOMI, Normocephalic Neck: Supple, No JVD, Negative Carotid Bruits Lungs: Clear to auscultation, Normal air movement Cardiovascular: Regular rate, No murmurs Abdomen: Bowel Sounds Present, Soft, Non Tender Extremities: No edema, Capillary Refill Less than 3 Seconds Skin: No rashes, No breakdown Musculoskeletal: No Tenderness to Palpation of Joints or Extremities Neurological: Cranial nerves II-XII grossly intact Psych/Mental Status: Normal Affect, Appropriate Microbiology Past 72 Hours 08/12/19 13:20 Mucosa - Nasopharyngeal Coronavirus COVID-19 PCR - Final Current Medications Acetaminophen (Tylenol) 650 mg PO Q6H PRN PRN PRN Reason: Pain Score 1-10/Temp > 100.7 F Last Admin: 08/12/19 22:27 Dose: 650 mg Documented by: Dextrose (D50w Syringe) 0 gm IV X1 PRN; Protocol PRN Reason: Hypoglycemia Docusate Sodium (Colace) 100 mg PO BID PRN PRN PRN Reason: Constipation Last Admin: 08/12/19 22:27 Dose: 100 mg Documented by: Glucagon () 1 mg IM .X1 PRN PRN Reason: Hypoglycemia Lactated Ringer's () 1,000 mls @ 125 mls/hr IV .Q8H [facility] Last Admin: 08/14/19 00:33 Dose: 125 mls/hr Documented by: Ciprofloxacin (Cipro) 400 mg in 200 mls @ 200 mls/hr IV Q12 [facility] Stop: 08/19/19 12:01 Last Admin: 08/14/19 09:03 Dose: 200 mls/hr Documented by: Morphine Sulfate () 2 mg IV Q3H PRN PRN PRN Reason: Pain Score 6-10/10 Last Admin: 08/13/19 09:52 Dose: 2 mg Documented by: Ondansetron HCl (Zofran) 4 mg IV Q6H PRN PRN PRN Reason: NAUSEA/VOMITING Last Admin: 08/13/19 05:08 Dose: 4 mg Documented by: Oxycodone HCl (Oxyir) 5 mg PO Q4H PRN PRN PRN Reason: Pain Score 4-5/10 Last Admin: 08/12/19 22:27 Dose: 5 mg Documented by: Sodium Chloride () 10 - 40 ml IV UD PRN PRN Reason: SALINE FLUSH Last Admin: 08/13/19 09:52 Dose: 10 ml Documented by: Discharge Diet: Light diet - advance as tolerated Discharge Activity: Return to Normal Activity Call your doctor if you observe: Fever of 101 or Higher, Uncontrolled pain Home Medications: Medications to take at Discharge Ketorolac [Toradol] 10 mg PO Q6H PRN 08/05/19 Ondansetron HCl [Zofran] 4 mg PO Q6H PRN PRN 08/05/19 Oxycodone HCl/Acetaminophen [Oxycodone-Acetaminophen 5-325] 1 ea PO Q4H PRN 08/12/19 Ciprofloxacin [Cipro] 500 mg PO BID #6 tab 08/13/19 Oxycodone HCl/Acetaminophen [Percocet 5/325] 1 tab PO Q4H PRN PRN 5 Days #14 tab 08/13/19 Following Prescrptions Were Given to Patient: Ciprofloxacin [Cipro] 500 mg PO BID #6 tab Prescription Printed Oxycodone HCl/Acetaminophen [Percocet 5/325] 1 tab PO Q4H PRN PRN 5 Days #14 tab PRN Reason: Pain Prescription Printed Primary Care Physician: Care Physician,No Primary [Primary Care Provider] - Please Follow Up With: Hunter Guallpa MD When: please call to make an appointment. Medical Necessity - Tobacco Use Smoking Status: Former smoker Tobacco Use: Cigarettes Meaningful Use Info Meaningful Use Diagnoses (Choose all that apply): None applicable
--- NOTE | 2019-08-14 10:58 | CASEMGMT ---
CHASITY VELASQUEZ assessment: Phone interview with patient for initial transition planning/care coordination assessment. CHASITY VELASQUEZ introduced self and role at [facility], pt voices understanding and consents to assessment at this time. Pt is A/Ox4 at this time and answers all questions appropriately at this time. Care providers, pharmacy, and demographics verified at this time. Admitting dx: Uteral stones PCP: Pt states no current PCP but states may see 's PCP in [place] or [facility] Specialists: kenna Guallpa Preferred Pharmacy: [facility] [place] Insurance: MMO Prescription Benefit: MMO Living Will/HPOA: Pt states does not have LW/HPOA and declines info at this time. LNOK: Keegan Messina, Living Arrangements: Pt states lives with in home and states no concerns at home at this time. Pt states is independent with ADL's. Transportation: Pt states drives self and states no transportation concerns at this time. DME/HHC: Pt states no current DME and denies need for any at this time. Pt states no hx of HHC or SNF in the past. Pt states no concerns with going home at time of discharge. 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 Pt states does not smoke or drink ETOH. Pt states no further questions/concerns/needs at this time. CM to follow for any further discharge planning/needs. Advised pt to ask for CM if any further questions/concerns/needs arise, voices understanding. Pt Goal: Home Plan[place] CHASITY VELASQUEZ
== END 2019-08-14 11:08 | disposition home or self-care (01) | DRG 661 ==
PROVIDERS: Admitting Provider Urology; Referring Provider Urology; Visit Provider Urology
PROC: 0TJ98ZZ Inspection of Ureter, Via Natural or Artificial Opening Endoscopic (ICD-10-PCS; CPT 52352; principal; 2019-08-13 12:25)
DX: N20.1 Calculus of ureter (principal); I10 Essential (primary) hypertension; E86.0 Dehydration; Z87.891 Personal history of nicotine dependence
CPT/HCPCS: 36415; 74018; 76000; 80048; 82360; 85025; 87635; 88300; 97802; G2023; J7120; A4216; C1769; C2617; J0744; J2405; U0004

== ENCOUNTER → 2020-01-03 06:15 | Outpatient (CLI) | payer OTHER, SELFPAY ==
[2019-08-13 11:13] VITALS: BMI 34.0
[2020-01-03 07:04] LABS: AST(SGOT) 22 U/L (15-37); Alanine Aminotransfer ALT/SGPT 27 U/L (13-56); Albumin, Serum 3.8 g/dL (3.2-5.0); Alkaline Phosphatase 104 U/L (45-117); Anion Gap 4 (5-15); BUN 20 mg/dL (7-18); BUN/Creat Ratio 27.7 RATIO (10-20); Chloride 105 mmol/L (98-107); Cholesterol 204 mg/dL (200); Creatinine, Serum 0.72 mg/dL (0.55-1.02); EST Glomerular Filtration Rate 87 mL/min (>60); Est Glom Filt Rate - Afr Amer 106 mL/min (>60); Globulin 3.7 g/dL (2.2-4.2); Glucose 95 mg/dL (74-106); High Density Lipoprotein 61 mg/dL; Potassium 4.7 mmol/L (3.5-5.1); Protein, Total 7.5 g/dL (6.4-8.2); Sodium Level 139 mmol/L (136-145); Triglycerides 145 mg/dL; Very Low Density Lipoprotein 29 mg/dL (5-40)
[2020-01-03 10:55] LABS: Hepatitis C Antibody Non-Reactive (Nonreactive)
== END ==
PROVIDERS: PCP Student in an Organized Health Care Education/Training Program; Referring Provider Student in an Organized Health Care Education/Training Program; Visit Provider Student in an Organized Health Care Education/Training Program
DX: Z11.59 Encounter for screening for other viral diseases (principal); Z13.6 Encounter for screening for cardiovascular disorders
CPT/HCPCS: 36415; 80053; 80061; 86803

== ENCOUNTER → 2020-02-09 10:25 | Outpatient (CLI) | payer OTHER, SELFPAY ==
[2019-08-13 11:13] VITALS: BMI 34.0
--- NOTE | 2020-02-09 10:30 | BI_ITS ---
MAMMOGRAPHY - BILATERAL SCREENING REASON FOR EXAM: Female, 59 years old. Routine annual screening examination. PERTINENT HISTORY: Non-contributory. TECHNIQUE: Digital bilateral breast nina (3D mammographic acquisition) in the CC and MLO projections. 2-D mediolateral oblique (MLO) and craniocaudad (CC) views of both breasts were obtained. CAD: Full Field Digital Mammography with Computer Added Detection was performed. COMPARISON: No comparison mammograms available at this time. If any prior films become available, an addendum to this report can be generated. FINDINGS: Breast Composition: The breasts are heterogeneously dense, which may obscure small masses. There are no dominant masses or suspicious calcifications. Small benign-appearing bilateral axillary No other significant abnormalities are identified. BI/SCREEN MAMM (CAD) W/NINA BILAT IMPRESSION: Negative screening mammogram. Yearly followup mammogram recommended. (A) ASSESSMENT CATEGORY: BIRADS Category 2: Benign. A letter regarding these results will be sent to the patient by the facility within 30 days. Approximately 10% of breast cancers are not detected by mammography. A normal mammogram should not delay biopsy of a clinically suspicious abnormality. [id number] Electronically Signed: Jorge Rowe, at 12:03 EST , Service support ,
--- NOTE | 2020-02-09 10:32 | BD_ITS ---
STUDY: DUAL ENERGY X-RAY ABSORPTIOMETRY / DXA REASON FOR EXAM: Female, 59 years old. DISPENSING LEAD- EARLY AT 41 YRS OLD -- HX OF SMOKING- QUIT LONG AGO -- DOES MODERATE AMOUNT OF EXERCISE -- UNKNOWN FAMILY HX -- NO DONNA TECHNIQUE: Bone Mineral Density (BMD) measurements of lumbar spine and bilateral hips were obtained. COMPARISON: None. FINDINGS: Lumbar Spine (L1-L4): g/cm2 (1.040) / T-score (-1.3) / Z-score (-0.1) Findings are suggestive of osteopenia with a low fracture risk. Left Femur Total: g/cm2 (1.030) / T-score (0.2) / Z-score (1.1) Left Femoral Neck: g/cm2 (1.026) / T-score (-0.1) / Z-score (1.2) Right Femur Total: g/cm2 (1.035) / T-score (0.2) / Z-score (1.2) Right Femoral Neck: g/cm2 (1.048) / T-score (0.1) / Z-score (1.3) BD/Dexa Bone Density Study IMPRESSION: The patient is considered osteopenic as outlined below according to World Nguyễn Organization (WHO) criteria with a low fracture risk. Reference Information: The T-score is the number of standard deviations above or below the standard which is normal for young adults at their peak bone mineral density. The World Health Organization (WHO) interprets the T-scores as follows: Above -1 Normal bone density Between -1 and -2.5 Osteopenia Equal to / or below -2.5 Osteoporosis As a practical clinical guideline, osteopenia may be graded as follows: Mild -1 through -1.5 Moderate -1.6 through -2.0 Severe -2.1 through -2.4 The Z-score is the number of standard deviations above or below age-matched controls. A Z-score of less than -1.5 would be considered abnormal. References: 1. NIH Osteoporosis and Related Bone Diseases www osteo.org 2. International Society for Clinical Densitometry www iscd.org 3. National Osteoporosis Foundation www nof.org Electronically Signed: Jorge Rowe, at 13:58 EST , Service support ,
== END ==
PROVIDERS: PCP Student in an Organized Health Care Education/Training Program; Referring Provider Student in an Organized Health Care Education/Training Program; Visit Provider Student in an Organized Health Care Education/Training Program
DX: Z13.820 Encounter for screening for osteoporosis (principal); Z12.31 Encounter for screening mammogram for malignant neoplasm of breast
CPT/HCPCS: 77063; 77067; 77080

== ENCOUNTER → 2020-02-24 | Outpatient (CLI) | payer OTHER, SELFPAY ==
[2019-08-13 11:13] VITALS: BMI 34.0
--- NOTE | 2020-02-24 | LES_PTH ---
PATIENT: SHANTI GANDHI LOC: [facility] U#:[id number] AGE/SX: 59/F ROOM: RE02/24/[address]: Dr. Bennie Cruz MD : 1960 BED: DIS: 02/24/2020 SPEC #: [id number] RECD: 02/24/20 14:00 STATUS: MAYNOR MANDY #: [id number] AMELIA: 02/24/20 00:[address]: Bennie Cruz DEPT: SURGICAL PATHOLOGY RECD BY: Denice Villegas ENTERED: 02/25/20 07:36 SP TYPE: Lesion OTHR DR: Dr. Rasta Hedrick, DO Tissues: Skin of arm Procedures: Surgery Specimen Level IV HEADER OPERATION: Left arm lesion PRE-OP DIAGNOSIS: Left arm lesion TISSUE SUBMITTED: Left arm lesion MICROSCOPIC DIAGNOSIS Skin lesion of left arm, biopsy: Consistent with keratoacanthoma, mildly inflamed. Mild solar elastosis. See comment. AM:lambert 02/28/20 COMMENT The lesion appears to have been completely excised in the planes examined. MICROSCOPIC DESCRIPTION Slides are reviewed. GROSS DESCRIPTION Received in fixative is one container labeled with the patient's name and designated arm. The specimen consists of a piece of malhotra-white skin measuring 0.5 x 0.3 x 0.2 cm. The specimen is inked and submitted entirely in one cassette. / SJ:lambert 02/25/20 TC:5 CPT: 19735
== END | disposition home or self-care (01) ==
PROVIDERS: PCP Student in an Organized Health Care Education/Training Program; Referring Provider Otolaryngology; Visit Provider Otolaryngology
DX: L57.8 Other skin changes due to chronic exposure to nonionizing radiation (principal)
CPT/HCPCS: 88305

== ENCOUNTER → 2020-12-21 16:28 | Outpatient (CLI) | payer OTHER, SELFPAY ==
--- NOTE | 2020-12-21 | LES_PTH ---
PATIENT: SHANTI GANDHI [facility] U#:[id number] AGE/SX: 64/F ROOM: RE12/21/[address]: Dr. Bennie Cruz MD : 1960 BED: DIS: SPEC #: [id number] RECD: 12/22/20 07:58 STATUS: MAYNOR MANDY #: [id number] AMELIA: 12/21/20 00:[address]: Bennie Cruz DEPT: SURGICAL PATHOLOGY RECD BY: Miko Echavarria ENTERED: 12/22/20 07:59 SP TYPE: Lesion OTHR DR: Dr. Rasta Hedrick, DO Tissues: Skin of arm Procedures: Surgery Specimen Level IV HEADER OPERATION: Biopsy PRE-OP DIAGNOSIS: Lesion left arm TISSUE SUBMITTED: Lesion left arm MICROSCOPIC DIAGNOSIS Lesion left arm, biopsy: Benign verrucous keratosis. Negative for malignancy. See comment. ORBERT:lambert 12/25/2020 COMMENT Focal minimal actinic keratosis-like changes are also noted. Clinical correlation and appropriate follow up are necessary. Please make reference to previous specimen ([id number]) skin lesion of left arm, biopsy with diagnosis of ?consistent with keratoacanthoma, mildly inflamed.? Case has been reviewed in consultation with Dr. Stuart who concurs with the above diagnosis. IDC:AM MICROSCOPIC DESCRIPTION Slides are reviewed. GROSS DESCRIPTION Received in fixative is one container labeled with the patient's name and designated left arm lesion. The specimen consists of a piece of malhotra-brown skin measuring 0.5 x 0.3 x 0.2 cm. The specimen is inked, bisected and submitted entirely in one cassette. / SJ:rg 12/22/20 TC:5 CPT: 61517
== END ==
PROVIDERS: PCP Student in an Organized Health Care Education/Training Program; Visit Provider Otolaryngology
DX: L57.0 Actinic keratosis (principal)
CPT/HCPCS: 88305

== ENCOUNTER → 2021-03-02 12:51 | Outpatient (CLI) | payer OTHER, SELFPAY ==
--- NOTE | 2021-03-02 12:52 | BI_ITS ---
MAMMOGRAPHY - BILATERAL SCREENING REASON FOR EXAM: Female, 60 years old. Routine annual screening examination. PERTINENT HISTORY: Non-contributory. TECHNIQUE: Digital bilateral breast nina (3D mammographic acquisition) in the CC and MLO projections. 2-D mediolateral oblique (MLO) and craniocaudad (CC) views of both breasts were obtained. CAD: Full Field Digital Mammography with Computer Added Detection was performed. COMPARISON: Comparison is made with prior study dated 02/09/2020. FINDINGS: Breast Composition: The breasts are heterogeneously dense, which may obscure small masses. There are no dominant masses or suspicious calcifications. Stable benign-appearing bilateral axillary No other significant abnormalities are identified. There has been no significant change since the prior study. BI/SCRN MAMM (CAD)W/NINA BILAT IMPRESSION: Stable bilateral screening mammogram. Yearly follow-up mammogram recommended. (A) ASSESSMENT CATEGORY: BIRADS Category 2: Benign. A letter regarding these results will be sent to the patient by the facility within 30 days. Approximately 10% of breast cancers are not detected by mammography. A normal mammogram should not delay biopsy of a clinically suspicious abnormality. [id number] Electronically Signed: Jorge Rowe MD at 13:51 EST , Service support ,
== END ==
PROVIDERS: PCP Student in an Organized Health Care Education/Training Program; Referring Provider Student in an Organized Health Care Education/Training Program; Visit Provider Student in an Organized Health Care Education/Training Program
DX: Z12.31 Encounter for screening mammogram for malignant neoplasm of breast (principal)
CPT/HCPCS: 77063; 77067

== ENCOUNTER → 2022-02-27 | Outpatient (CLI) | payer OTHER, SELFPAY ==
[2022-02-27 09:43] LABS: Hematocrit 48.2 % (37-47); Hemoglobin 16.3 g/dL (12.0-15.0); Mean Corp Hgb Conc 33.8 g/dL (32-36); Mean Corpuscular Hgb 32.3 pg (27.0-32.0); Mean Corpuscular Volume 95.6 fL (81-99); Platelet Count 266 K/mm3 (150-450); RBC Distribution Width CV 13.2 % (11.6-14.6); RBC Distribution Width SD 47.1 fl (35.1-43.9); Red Blood Count 5.04 M/mm3 (4.2-5.4); White Blood Count 5.9 K/mm3 (4.4-11.0)
[2022-02-27 10:04] LABS: Anion Gap 3 (5-15); BUN 20 mg/dL (7-18); BUN/Creat Ratio 28.5 RATIO (10-20); Calcium,Total 9.6 mg/dL (8.5-10.1); Chloride 107 mmol/L (98-107); Cholesterol 213 mg/dL (200); EST Glomerular Filtration Rate 90 mL/min (>60); Est Glom Filt Rate - Afr Amer 108 mL/min (>60); Glucose 92 mg/dL (74-106); High Density Lipoprotein 66 mg/dL; Potassium 4.7 mmol/L (3.5-5.1); Sodium Level 140 mmol/L (136-145); Triglycerides 121 mg/dL; Very Low Density Lipoprotein 24 mg/dL (5-40)
== END | disposition home or self-care (01) ==
LOC: LAB 09:14
PROVIDERS: PCP Student in an Organized Health Care Education/Training Program; Visit Provider Student in an Organized Health Care Education/Training Program
DX: Z00.00 Encounter for general adult medical examination without abnormal findings (principal); Z13.220 Encounter for screening for lipoid disorders; Z13.1 Encounter for screening for diabetes mellitus; N18.2 Chronic kidney disease, stage 2 (mild)
CPT/HCPCS: 36415; 80048; 80061; 85027

== ENCOUNTER → 2022-03-12 | Outpatient (CLI) | payer OTHER, SELFPAY ==
--- NOTE | 2022-03-12 15:15 | BI_ITS ---
MAMMOGRAPHY - BILATERAL SCREENING REASON FOR EXAM: Female, 61 years old. Routine annual screening examination. PERTINENT HISTORY: Non-contributory. TECHNIQUE: Digital bilateral breast nina (3D mammographic acquisition) in the CC and MLO projections. 2-D mediolateral oblique (MLO) and craniocaudad (CC) views of both breasts were obtained. CAD: Full Field Digital Mammography with Computer Added Detection was performed. COMPARISON: Comparison is made with prior study dated 03/02/2021 and 02/09/2020. FINDINGS: Breast Composition: The breasts are heterogeneously dense, which may obscure small masses. There are no dominant masses or suspicious calcifications. Stable small benign-appearing bilateral axillary lymph nodes. No other significant abnormalities are identified. There has been no significant change since the prior study. BI/SCRN MAMM (CAD)W/NINA BILAT IMPRESSION: Stable bilateral screening mammogram. Yearly follow-up mammogram recommended. (A) ASSESSMENT CATEGORY: BIRADS Category 2: Benign. A letter regarding these results will be sent to the patient by the facility within 30 days. Approximately 10% of breast cancers are not detected by mammography. A normal mammogram should not delay biopsy of a clinically suspicious abnormality. [id number] Electronically Signed: Jorge Rowe MD at 8:23 EST ,
--- NOTE | 2022-03-12 15:21 | BD_ITS ---
STUDY: DUAL ENERGY X-RAY ABSORPTIOMETRY / DXA REASON FOR EXAM: Female, 61 years old. [id number] TECHNIQUE: Bone Mineral Density (BMD) measurements of lumbar spine and bilateral hips were obtained. COMPARISON: Comparison is made with prior study 02/09/2020. FINDINGS: Lumbar Spine (L1-L4): g/cm2 (0.876) / T-score (-1.6) / Z-score (0.1) Findings are suggestive of osteopenia with a moderate fracture risk. Left Femur Total: g/cm2 (0.930) / T-score (-0.1) / Z-score (1.0) Left Femoral Neck: g/cm2 (0.746) / T-score (-0.9) / Z-score (0.5) Right Femur Total: g/cm2 (0.916) / T-score (-0.2) / Z-score (0.9) Right Femoral Neck: g/cm2 (0.791) / T-score (-0.5) / Z-score (0.9) The T-Scores on the most recent prior examination were: Lumbar Spine (L1-L4): There has been worsening of bone density since the previous examination. Left Femur Total: which represents a worsening of 3.5%. Right Femur Total: which represents a worsening of 5.4%. BD/Dexa Bone Density Study IMPRESSION: The patient is considered osteopenic as outlined below according to World Nguyễn Organization (WHO) criteria with a moderate fracture risk. There has been worsening of bone density since the previous examination. Reference Information: The T-score is the number of standard deviations above or below the standard which is normal for young adults at their peak bone mineral density. The World Health Organization (WHO) interprets the T-scores as follows: Above -1 Normal bone density Between -1 and -2.5 Osteopenia Equal to / or below -2.5 Osteoporosis As a practical clinical guideline, osteopenia may be graded as follows: Mild -1 through -1.5 Moderate -1.6 through -2.0 Severe -2.1 through -2.4 The Z-score is the number of standard deviations above or below age-matched controls. A Z-score of less than -1.5 would be considered abnormal. References: 1. NIH Osteoporosis and Related Bone Diseases www osteo.org 2. International Society for Clinical Densitometry www iscd.org 3. National Osteoporosis Foundation www nof.org Electronically Signed: Jorge Rowe MD at 11:05 EST ,
== END | disposition home or self-care (01) ==
LOC: OPBD 15:14
PROVIDERS: PCP Student in an Organized Health Care Education/Training Program; Visit Provider Student in an Organized Health Care Education/Training Program
DX: Z00.00 Encounter for general adult medical examination without abnormal findings (principal); Z12.31 Encounter for screening mammogram for malignant neoplasm of breast; M85.80 Other specified disorders of bone density and structure, unspecified site; Z78.0 Asymptomatic menopausal state
CPT/HCPCS: 77063; 77067; 77080

== ENCOUNTER → 2022-06-07 | Outpatient (CLI) | payer OTHER, SELFPAY ==
[2022-06-07 15:06] LABS: Hemoglobin 15.2 g/dL (12.0-15.0); Mean Corp Hgb Conc 32.3 g/dL (32-36); Mean Corpuscular Hgb 31.7 pg (27.0-32.0); Mean Corpuscular Volume 97.9 fL (81-99); Mean Platelet Vol. 10.6 fl (6.2-12.0); Platelet Count 252 K/mm3 (150-450); RBC Distribution Width CV 13.2 % (11.6-14.6); RBC Distribution Width SD 48.2 fl (35.1-43.9); White Blood Count 7.8 K/mm3 (4.4-11.0)
[2022-06-07 16:04] LABS: Vitamin D,25 Hydroxy 29.5 ng/mL
== END | disposition home or self-care (01) ==
PROVIDERS: PCP Student in an Organized Health Care Education/Training Program; Referring Provider Student in an Organized Health Care Education/Training Program; Visit Provider Student in an Organized Health Care Education/Training Program
DX: D75.1 Secondary polycythemia (principal); M85.80 Other specified disorders of bone density and structure, unspecified site; E55.9 Vitamin D deficiency, unspecified; R59.0 Localized enlarged lymph nodes
CPT/HCPCS: 36415; 82306; 85027

== ENCOUNTER → 2022-09-11 | Outpatient (CLI) | payer OTHER, SELFPAY ==
[2022-09-11 12:49] LABS: Hemoglobin 15.4 g/dL (12.0-15.0); Mean Corp Hgb Conc 32.8 g/dL (32-36); Mean Corpuscular Volume 97.7 fL (81-99); Mean Platelet Vol. 10.6 fl (6.2-12.0); Platelet Count 280 K/mm3 (150-450); RBC Distribution Width CV 13.6 % (11.6-14.6); RBC Distribution Width SD 49.7 fl (35.1-43.9); Red Blood Count 4.81 M/mm3 (4.2-5.4); White Blood Count 8.4 K/mm3 (4.4-11.0)
== END | disposition home or self-care (01) ==
LOC: LAB.FUTURE 12:15 → LAB 12:16
PROVIDERS: PCP Student in an Organized Health Care Education/Training Program; Referring Provider Student in an Organized Health Care Education/Training Program; Visit Provider Student in an Organized Health Care Education/Training Program
DX: D75.1 Secondary polycythemia (principal)
CPT/HCPCS: 36415; 85027